=== PATIENT | female | born 1975 | race Caucasian/White ===

== ENCOUNTER 2016-11-10 20:30 | Emergency (ER) | payer MEDICAID ==
[2016-11-10] MEDS ORDERED: Ondansetron 4 MG/2 ML SDV IVPUSH ONE (21:33)
--- NOTE | 2016-11-10 21:34 | EDM.PDOC ---
ED HPI GENERAL MEDICAL PROBLEM - General Chief Complaint: General Stated Complaint: NAUSEA/RACING HEARTBEAT Time Seen by Provider: 11/10/16 21:34 Source of Information: Reports: Patient, Family History Limitations: Reports: No limitations headache Pain Score (Numeric/FACES): 2 - Related Data Allergies Allergy/AdvReac Type Severity Reaction Status Date / Time medroxyprogesterone Allergy Hives Verified 11/10/16 20:52 [From Depo-Provera] Home Meds: Home Meds Hydrochlorothiazide 12.5 mg PO DAILY 11/10/16 [History] Past Medical History Cardiovascular History: Reports: Hypertension Gastrointestinal History: Reports: Cholelithiasis, GERD 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: Polycystic 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, Musculoskeletal History: Reports: Fibromyalgia Neurological History: Reports: Migraines Psychiatric History: Reports: Anxiety Endocrine/Metabolic History: Reports: Obesity/BMI 30+ Hematologic History: Reports: None - Infectious Disease History Infectious Disease History: Reports: Chicken pox - Past Surgical History GI Surgical History: Reports: Appendectomy, Cholecystectomy, Colonoscopy, EGD Female Surgical History: Reports: Hysterectomy Social & Family History - Tobacco Use Smoking Status *Q: Never Smoker - Caffeine Use Caffeine Use: Reports: Soda - Recreational Drug Use Recreational Drug Use: No ED ROS GENERAL - Review of Systems Review Of Systems: See Below Constitutional: Reports: no symptoms, other (pt felt warm all over. ) HEENT: Reports: No symptoms Respiratory: Reports: other (Pt hurts on her left chest wall. She has had a bad cough. ) Cardiovascular: Reports: No symptoms Endocrine: Reports: no symptoms GI/Abdominal: Reports: Abdominal pain, Nausea, Other (Pt has pain in the rt upper quadrant. ) : Reports: no symptoms Musculoskeletal: Reports: no symptoms Skin: Reports: no symptoms ED EXAM, GENERAL - Physical Exam Exam: See Below Free Text/Narrative:: Pt arrived with pain in the rt upper abdoman and she was very nauseated. Her bp was found to be much higher than usual. She has the sensation that her heart is pounding fast. Exam Limited By: No limitations General Appearance: alert, anxious, moderate distress Ears: normal TMs Nose: normal inspection Throat/Mouth: Normal inspection Head: atraumatic Neck: normal inspection Respiratory/Chest: no respiratory distress Cardiovascular: regular rate, rhythm GI/Abdominal: soft, non tender Rectal (Female) Exam: Deferred Extremities: normal inspection Neurological: alert, oriented, normal cognition, other (pt has had slightly blurred vision and she felt hot all over. She was not found to have a fever. ) Psychiatric: normal affect Course - Vital Signs Last Recorded V/S: Last Vital Signs Temp 37.4 C 11/10/16 21:01 Pulse 76 11/10/16 22:11 Resp 20 11/10/16 22:11 BP 151/91 H 11/10/16 22:11 Pulse Ox 97 11/10/16 22:11 - Orders/Labs/Meds Orders: Active Orders 24 hr Category Date Time Status Abdomen Ltd [US] Stat Exams 11/10/16 22:09 Ordered Chest 2V [CR] Stat Exams 11/10/16 21:32 Taken Sodium Chloride 0.9% [Normal Saline] 1,000 ml Med 11/10/16 21:45 Active IV ASDIRECTED Medication Orders Sodium Chloride (Normal Saline) 1,000 mls @ 200 mls/hr IV ASDIRECTED CHELO Last Admin: 11/10/16 21:59 Dose: 200 mls/hr Labs: Laboratory Tests 11/10/16 11/10/16 11/10/16 Range/Units 21:32 21:32 21:32 WBC 9.1 (4.5-11.0) K/uL RBC 4.75 (3.30-5.50) M/uL Hgb 14.2 (12.0-15.0) g/dL Hct 40.4 (36.0-48.0) % MCV 85 (80-98) fL MCH 30 (27-31) pg MCHC 35 (32-36) % Plt Count 314 (150-400) K/uL Neut % (Auto) 57 (36-66) % Lymph % (Auto) 32 (24-44) % [place] % (Auto) 8 H (2-6) % Eos % (Auto) 3 (2-4) % Baso % (Auto) 1 (0-1) % Sodium 143 (140-148) mmol/L Potassium 3.5 L (3.6-5.2) mmol/L Chloride 104 (100-108) mmol/L Carbon Dioxide 30 (21-32) mmol/L Anion Gap 12.5 (5.0-14.0) mmol/L BUN 13 (7-18) mg/dL Creatinine 0.9 (0.6-1.0) mg/dL Est Cr Clr Drug Dosing 70.32 mL/min Estimated GFR (MDRD) > 60 (>60) Glucose 96 (74-106) mg/dL Calcium 9.3 (8.5-10.1) mg/dL Total Bilirubin 0.3 (0.2-1.0) mg/dL AST 15 (15-37) U/L ALT 30 (12-78) U/L Alkaline Phosphatase 55 (46-116) U/L C-Reactive Protein (0.0-0.3) mg/dL Total Protein 7.1 (6.4-8.2) g/dL Albumin 3.8 (3.4-5.0) g/dL Globulin 3.3 (2.3-3.5) g/dL Albumin/Globulin Ratio 1.2 (1.2-2.2) Lipase 211 (73-393) U/L Urine Color Urine Appearance Urine pH (4.5-8.0) Ur Specific [place] (1.008-1.030) Urine Protein (NEGATIVE) mg/dL Urine Glucose (UA) (NEGATIVE) mg/dL Urine Ketones (NEGATIVE) mg/dL Urine Occult Blood (NEGATIVE) Urine Nitrite (NEGATIVE) Urine Bilirubin (NEGATIVE) Urine Urobilinogen (NORMAL) mg/dL Ur Leukocyte Esterase (NEGATIVE) Urine RBC (0-5) Urine WBC (0-5) Ur Epithelial Cells Amorphous Sediment Urine Bacteria Urine Mucus 11/10/16 11/10/16 Range/Units 22:07 22:30 WBC (4.5-11.0) K/uL RBC (3.30-5.50) M/uL Hgb (12.0-15.0) g/dL Hct (36.0-48.0) % MCV (80-98) fL MCH (27-31) pg MCHC (32-36) % Plt Count (150-400) K/uL Neut % (Auto) (36-66) % Lymph % (Auto) (24-44) % [place] % (Auto) (2-6) % Eos % (Auto) (2-4) % Baso % (Auto) (0-1) % Sodium (140-148) mmol/L Potassium (3.6-5.2) mmol/L Chloride (100-108) mmol/L Carbon Dioxide (21-32) mmol/L Anion Gap (5.0-14.0) mmol/L BUN (7-18) mg/dL Creatinine (0.6-1.0) mg/dL Est Cr Clr Drug Dosing mL/min Estimated GFR (MDRD) (>60) Glucose (74-106) mg/dL Calcium (8.5-10.1) mg/dL Total Bilirubin (0.2-1.0) mg/dL AST (15-37) U/L ALT (12-78) U/L Alkaline Phosphatase (46-116) U/L C-Reactive Protein 0.08 (0.0-0.3) mg/dL Total Protein (6.4-8.2) g/dL Albumin (3.4-5.0) g/dL Globulin (2.3-3.5) g/dL Albumin/Globulin Ratio (1.2-2.2) Lipase (73-393) U/L Urine Color Yellow Urine Appearance Clear Urine pH 7.0 (4.5-8.0) Ur Specific [place] 1.020 (1.008-1.030) Urine Protein Negative (NEGATIVE) mg/dL Urine Glucose (UA) Normal (NEGATIVE) mg/dL Urine Ketones Negative (NEGATIVE) mg/dL Urine Occult Blood Negative (NEGATIVE) Urine Nitrite Negative (NEGATIVE) Urine Bilirubin Negative (NEGATIVE) Urine Urobilinogen Normal (NORMAL) mg/dL Ur Leukocyte Esterase Negative (NEGATIVE) Urine RBC 0-5 (0-5) Urine WBC 0-5 (0-5) Ur Epithelial Cells Moderate Amorphous Sediment Few Urine Bacteria Few Urine Mucus Few Meds: Medications Generic Name Dose Route Start Last Admin Trade Name Freq PRN Reason Stop Dose Admin Sodium Chloride 1,000 mls @ 200 mls/hr 11/10/16 21:45 11/10/16 21:59 Normal Saline IV 200 mls/hr ASDIRECTED CHELO Administration Discontinued Medications Generic Name Dose Route Start Last Admin Trade Name Freq PRN Reason Stop Dose Admin Metoprolol Tartrate 25 mg 11/10/16 22:37 Lopressor PO 11/10/16 22:38 ONETIME ONE Ondansetron HCl 4 mg 11/10/16 21:33 11/10/16 22:00 Zofran IVPUSH 11/10/16 21:34 4 mg ONETIME ONE Administration - Re-Assessments/Exams Free Text/Narrative Re-Assessment/Exam: 11/10/16 23:01 pt had a normal wbc, her crp is not markedly elfevated. Her chest xray did not reveal a infiltrate. Her bp was followed and graduallu did come down but still did remain elevated. 11/10/16 23:13 Us revealed a normal sized common duct with no stones. Pt has alot of ga in the upper rt abdoman. Departure - Departure Time of Disposition: 23:03 Disposition: Home, Self-Care 01 Condition: fair Clinical Impression: Hypertension, Flu syndrome, Constipation Referrals: Millie Worthington PA [Primary Care Provider] - Forms: ED Department Discharge Care Plan Goals: push fluids, prunes and high fiber food to stimulate a better bm, cont present bp pill add lopressor 25 mg daily, zoforan 4 mg q6h prn for nausea. appt with Elo Worthington in 1 week. - My Orders Last 24 Hours: My Active Orders 11/10/16 21:32 Chest 2V [CR] Stat 11/10/16 21:45 Sodium Chloride 0.9% [Normal Saline] 1,000 ml IV ASDIRECTED 11/10/16 22:09 Abdomen Ltd [US] Stat - Assessment/Plan Last 24 Hours: My Active Orders 11/10/16 21:32 Chest 2V [CR] Stat 11/10/16 21:45 Sodium Chloride 0.9% [Normal Saline] 1,000 ml IV ASDIRECTED 11/10/16 22:09 Abdomen Ltd [US] Stat
[2016-11-10] MEDS ORDERED: Sodium Chloride 0.9% 1,000 ML IV SCH (21:45)
[2016-11-10] MEDS ORDERED: Metoprolol Tartrate 25 MG Tab PO ONE (22:37)
[2016-11-10 23:17] VITALS: BP 143/94
--- NOTE | 2016-11-11 09:46 | CR ---
Chest 2V HISTORY: Cough, shortness of breath. COMPARISON: 03/13/2011 FINDINGS: Cardiac size and pulmonary vessels normal. Density overlying the right supraclavicular reg ion likely representing overlying closing or possibly pony tail. No focal infiltrates.
--- NOTE | 2016-11-11 09:48 | US ---
Abdomen Ltd HISTORY: Upper abdominal pain COMPARISON: CT scan 06/12/2016 FINDINGS: Gallbladder has been removed. The common bile duct, pancreas, right kidney, liver appear n ormal. Inferior vena cava patent. No ascites. Impression: Negative right upper quadrant ultrasound.
== END 2016-11-10 23:29 | disposition home or self-care (01) ==
LOC: JP.ED 20:30
DX: I10 Essential (primary) hypertension (principal); K59.00 Constipation, unspecified; J11.1 Influenza due to unidentified influenza virus with other respiratory manifestations; Z90.49 Acquired absence of other specified parts of digestive tract; Z98.890 Other specified postprocedural states
CPT/HCPCS: 36415; 71020; 76705; 80053; 81001; 83690; 85025; 86140; 96361; 96374; 99285; A9270; J2405; J7040

== ENCOUNTER 2017-06-06 17:11 | Emergency (ER) | payer MEDICAID ==
[2017-06-06] MEDS ORDERED: HYDROmorphone 1 MG/ML Syringe IVPUSH ONE (17:14)
[2017-06-06] MEDS ORDERED: Ketorolac 30 MG/ML SDV IVPUSH ONE (17:20)
[2017-06-06] MEDS ORDERED: Sodium Chloride 0.9% 10 ML Syringe FLUSH PRN (17:29)
[2017-06-06 17:30] VITALS: BP 159/99
--- NOTE | 2017-06-06 17:45 | EDM.PDOC ---
ED HPI GENERAL MEDICAL PROBLEM - General Chief Complaint: Upper Extremity Injury/Pain Stated Complaint: LEFT HAND FINGERS INJURY Time Seen by Provider: 06/06/17 17:42 Source of Information: Reports: Patient History Limitations: Reports: No Limitations - History of Present Illness INITIAL COMMENTS - FREE TEXT/NARRATIVE: Pt was moving today when stove began moving down a ramp with her hand underneath it, crushing it. In intense pain. Believes tetanus is up to date. Has applied ice to it. Difficulty bending fingers. Onset: Today Onset Date: 06/06/17 Onset Time: 16:30 Duration: Constant Location: Reports: Upper Extremity, Left Quality: Reports: Ache, Sharp Severity: Severe Improves with: Reports: Cold Therapy Worsens with: Reports: Movement Context: Reports: Trauma Associated Symptoms: Reports: No Other Symptoms - Related Data Allergies Allergy/AdvReac Type Severity Reaction Status Date / Time medroxyprogesterone Allergy Hives Verified 11/10/16 20:52 [From Depo-Provera] Home Meds: Home Meds Hydrochlorothiazide 12.5 mg PO DAILY 11/10/16 [History] Past Medical History Cardiovascular History: Reports: Hypertension Gastrointestinal History: Reports: Cholelithiasis, 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: Polycystic Ovaries, Musculoskeletal History: Reports: Fibromyalgia Neurological History: Reports: Migraines Psychiatric History: Reports: Anxiety Endocrine/Metabolic History: Reports: Obesity/BMI 30+ Hematologic History: Reports: None - Infectious Disease History Infectious Disease History: Reports: Chicken Pox - Past Surgical History GI Surgical History: Reports: Appendectomy, Cholecystectomy, Colonoscopy, EGD Female Surgical History: Reports: Hysterectomy Social & Family History - Tobacco Use Smoking Status *Q: Never Smoker - Caffeine Use Caffeine Use: Reports: Soda - Recreational Drug Use Recreational Drug Use: No Review of Systems - Review of Systems Review Of Systems: See Below Constitutional: Reports: No Symptoms Eyes: Reports: No Symptoms Ears: Reports: No Symptoms Nose: Reports: No Symptoms Mouth/Throat: Reports: No Symptoms Respiratory: Reports: No Symptoms Cardiovascular: Reports: No Symptoms Musculoskeletal: Reports: Hand Pain (left) Skin: Reports: Bruising (left hand) ED EXAM, GENERAL - Physical Exam Exam: See Below Exam Limited By: No Limitations General Appearance: Alert, WD/WN, Moderate Distress Extremities: Limited Range of Motion (to left fingers x 4, difficulty flexing) Neurological: Alert, Oriented, CN II-XII Intact, Normal Cognition, Normal Gait, Normal Reflexes, No Motor/Sensory Deficits Skin Exam: Wound/Incision (scraped appearance to top of left hand and fingers. No active bleeding. Swelling noted.) Course - Vital Signs Last Recorded V/S: Last Vital Signs Temp 98.6 F 06/06/17 17:27 Pulse 105 H 06/06/17 17:27 Resp 14 06/06/17 17:27 BP 159/99 H 06/06/17 17:27 Pulse Ox 98 06/06/17 17:27 - Orders/Labs/Meds Orders: Active Orders 24 hr Category Date Time Status Hand Comp Min 3V Lt [CR] Stat Exams 06/06/17 17:15 Taken Sodium Chloride 0.9% [Saline Flush] Med 06/06/17 17:29 Active 10 ml FLUSH ASDIRECTED PRN Medication Orders Sodium Chloride (Saline Flush) 10 ml FLUSH ASDIRECTED PRN PRN Reason: IV Use Last Admin: 06/06/17 17:30 Dose: 10 ml Meds: Medications Generic Name Dose Route Start Last Admin Trade Name Freq PRN Reason Stop Dose Admin Sodium Chloride 10 ml 06/06/17 17:29 06/06/17 17:30 Saline Flush FLUSH 10 ml ASDIRECTED PRN Administration IV Use Discontinued Medications Generic Name Dose Route Start Last Admin Trade Name Freq PRN Reason Stop Dose Admin Hydromorphone HCl 1 mg 06/06/17 17:14 06/06/17 17:30 Dilaudid IVPUSH 06/06/17 17:15 1 mg ONETIME ONE Administration Ketorolac Tromethamine 30 mg 06/06/17 17:20 06/06/17 17:49 Toradol IVPUSH 06/06/17 17:21 30 mg ONETIME ONE Administration Departure - Departure Time of Disposition: 17:53 Disposition: Home, Self-Care 01 Condition: Fair Clinical Impression: Crushing injury of left hand and finger Qualifiers: Encounter type: initial encounter Qualified Code(s): S67.22XA - Crushing injury of left hand, initial encounter - Discharge Information Instructions: Crush Injury, Fingers or Toes, [id number] Referrals: PCP,None [Primary Care Provider] - Forms: ED Department Discharge Additional Instructions: Iv Dilaudid and Toradol given while in ER for pain management. Xrays of left hand and fingers without fracture. Hand wounds cleansed and dressed with bacitracin and gauze. Pt to monitor for s/s of infection. To change dressings daily until healed. Rx for Hydrocodone 5/325 1 tab q 6-8 hours as needed for pain given. Encouraged Aleve 1-2 tabs twice daily as well for inflammation. - Problem List & Annotations (1) Crushing injury of left hand and finger SNOMED Code(s): 39607936 Code(s): S67.22XA - CRUSHING INJURY OF LEFT HAND, INITIAL ENCOUNTER Status : Acute Priority: Medium Current Visit: Yes Qualifiers: Encounter type: initial encounter Qualified Code(s): S67.22XA - Crushing injury of left hand, initial encounter - My Orders Last 24 Hours: My Active Orders 06/06/17 17:15 Hand Comp Min 3V Lt [CR] Stat 06/06/17 17:29 Sodium Chloride 0.9% [Saline Flush] 10 ml FLUSH ASDIRECTED PRN - Assessment/Plan Last 24 Hours: My Active Orders 06/06/17 17:15 Hand Comp Min 3V Lt [CR] Stat 06/06/17 17:29 Sodium Chloride 0.9% [Saline Flush] 10 ml FLUSH ASDIRECTED PRN
[2017-06-06] MEDS ORDERED: Bacitracin Oint 1 GM U/D Packet TOP ONE (17:56)
--- NOTE | 2017-06-07 15:18 | CR ---
Hand Comp Min 3V Lt INDICATION: crush injury to hand COMPARISON: None FINDINGS: 3 views. No fracture, dislocation, or other acute bony abnormality. Positive ulnar vari ance with signs of mild chronic distal ulnar impaction. IMPRESSION: Nothing acute. Chronic distal ulnar impaction.
== END 2017-06-06 18:13 | disposition home or self-care (01) ==
LOC: JP.ED 17:11
DX: S67.22XA Crushing injury of left hand, initial encounter (principal); I10 Essential (primary) hypertension; K21.9 Gastro-esophageal reflux disease without esophagitis; F41.9 Anxiety disorder, unspecified; E66.9 Obesity, unspecified; Z90.49 Acquired absence of other specified parts of digestive tract; Z90.710 Acquired absence of both cervix and uterus; Z79.899 Other long term (current) drug therapy; Z88.8 Allergy status to other drugs, medicaments and biological substances; W23.0XXA Caught, crushed, jammed, or pinched between moving objects, initial encounter
CPT/HCPCS: 73130; 96374; 96375; 99284; J1170; J1885; J7050

== ENCOUNTER 2017-09-30 20:12 | Emergency (ER) | payer MEDICAID ==
[2017-09-30 20:33] VITALS: BP 133/78
[2017-09-30] MEDS ORDERED: Ondansetron 4 MG/2 ML SDV IVPUSH ONE (21:50)
[2017-09-30] MEDS ORDERED: Ketorolac 30 MG/ML SDV IVPUSH ONE (21:50)
[2017-09-30] MEDS ORDERED: diphenhydrAMINE 50 MG/ML SDV IVPUSH ONE (21:50)
[2017-09-30] MEDS ORDERED: Sodium Chloride 0.9% 1,000 ML IV SCH (22:00)
--- NOTE | 2017-09-30 22:10 | EDM.PDOC ---
ED HPI GENERAL MEDICAL PROBLEM - General Chief Complaint: Gastrointestinal Problem Stated Complaint: NAUSEA HEADACHE ABD PAIN Time Seen by Provider: 09/30/17 20:58 Source of Information: Reports: Patient History Limitations: Reports: No Limitations - History of Present Illness INITIAL COMMENTS - FREE TEXT/NARRATIVE: Influenza like illness; this is a 42 year old female presents to ER for sudden onset of nausea, vomiting and diarrhea after eating a tuna fish sandwich at 3 pm today. this triggered her usual migraine headache. she is here for evaluation. Onset: Today, Sudden Duration: Hour(s): Location: Reports: Abdomen, Other (headache) Quality: Reports: Ache Severity: Moderate Improves with: Reports: None Worsens with: Reports: None Associated Symptoms: Reports: Headaches, Nausea/Vomiting Posterior Headache Pain Score (Numeric/FACES): 7 Middle Abdomen Pain Score (Numeric/FACES): 5 - Related Data Allergies Allergy/AdvReac Type Severity Reaction Status Date / Time medroxyprogesterone Allergy Hives Verified 09/30/17 20:47 [From Depo-Provera] Home Meds: Home Meds Hydrochlorothiazide 12.5 mg PO DAILY 11/10/16 [History] Past Medical History Cardiovascular History: Reports: Hypertension Gastrointestinal History: Reports: Cholelithiasis, GERD Genitourinary History: Reports: None [facility] History: Reports: Polycystic Ovaries, Musculoskeletal History: Reports: Fibromyalgia Neurological History: Reports: Migraines Psychiatric History: Reports: Anxiety Endocrine/Metabolic History: Reports: Obesity/BMI 30+ Hematologic History: Reports: None - Infectious Disease History Infectious Disease History: Reports: Chicken Pox - Past Surgical History GI Surgical History: Reports: Appendectomy, Cholecystectomy, Colonoscopy, EGD Female Surgical History: Reports: Hysterectomy Social & Family History - Tobacco Use Smoking Status *Q: Never Smoker Second Hand Smoke Exposure: No - Caffeine Use Caffeine Use: Reports: Coffee - Recreational Drug Use Recreational Drug Use: No ED ROS GENERAL - Review of Systems Review Of Systems: See Below Constitutional: Reports: Fever, Chills, Malaise, Fatigue HEENT: Reports: No Symptoms, Eye Pain (light sensivity) Respiratory: Reports: No Symptoms Cardiovascular: Reports: No Symptoms Endocrine: Reports: No Symptoms GI/Abdominal: Reports: Abdominal Pain, Diarrhea, Nausea, Vomiting : Reports: No Symptoms Musculoskeletal: Reports: No Symptoms Skin: Reports: No Symptoms Neurological: Reports: No Symptoms Psychiatric: Reports: No Symptoms Hematologic/Lymphatic: Reports: No Symptoms Immunologic: Reports: No Symptoms ED EXAM, GENERAL - Physical Exam Exam: See Below Exam Limited By: No Limitations General Appearance: Alert, Moderate Distress (laying curled up on stretcher in darken room. emesis bag at her side.) Eye Exam: Bilateral Eye: EOMI, Normal Inspection, PERRL Ears: Normal External Exam, Normal Canal, Hearing Grossly Normal, Normal TMs Ear Exam: Bilateral Ear: Auricle Normal, Canal Normal, TM normal Nose: Normal Inspection, Normal Mucosa, No Blood Throat/Mouth: Normal Inspection, Normal Lips, Normal Teeth, Normal Gums, Normal Oropharynx, Normal Voice, No Airway Compromise Head: Atraumatic, Normocephalic Neck: Normal Inspection, Supple, Non-Tender, Full Range of Motion Respiratory/Chest: No Respiratory Distress, Lungs Clear, Normal Breath Sounds, No Accessory Muscle Use, Chest Non-Tender Cardiovascular: Normal Peripheral Pulses, Regular Rate, Rhythm, No Edema, No Gallop, No JVD, No Murmur, No Rub GI/Abdominal: Normal Bowel Sounds, Soft, Tender (generalized tenderness) (Female) Exam: Deferred Rectal (Female) Exam: Deferred Extremities: Normal Inspection, Normal Range of Motion, Non-Tender, Normal Capillary Refill, No Pedal Edema Neurological: Alert, Oriented, CN II-XII Intact, Normal Cognition, Normal Gait, Normal Reflexes, No Motor/Sensory Deficits Psychiatric: Normal Affect, Normal Mood Skin Exam: Warm, Dry, Intact, Normal Color, No Rash Lymphatic: No Adenopathy Course - Vital Signs Last Recorded V/S: Last Vital Signs Temp 36.5 C 09/30/17 20:42 Pulse 101 H 09/30/17 20:42 Resp 16 09/30/17 20:42 BP 133/78 09/30/17 20:42 Pulse Ox 95 09/30/17 20:42 - Orders/Labs/Meds Orders: Active Orders 24 hr Category Date Time Status CULTURE STREP A CONFIRMATION [] Stat Lab 09/30/17 21:08 Results STREP SCRN A RAPID W CULT CONF [] Stat Lab 09/30/17 21:08 Results Labs: Laboratory Tests 09/30/17 09/30/17 Range/Units 21:08 21:08 Urine Color Yellow Urine Appearance Cloudy Urine pH 5.0 (4.5-8.0) Ur Specific [place] 1.030 (1.008-1.030) Urine Protein Negative (NEGATIVE) mg/dL Urine Glucose (UA) Normal (NEGATIVE) mg/dL Urine Ketones Negative (NEGATIVE) mg/dL Urine Occult Blood Moderate (NEGATIVE) Urine Nitrite Negative (NEGATIVE) Urine Bilirubin Small (NEGATIVE) Urine Urobilinogen Normal (NORMAL) mg/dL Ur Leukocyte Esterase Negative (NEGATIVE) Urine RBC 0-5 (0-5) Urine WBC 0-5 (0-5) Ur Epithelial Cells Few Amorphous Sediment Few Urine Bacteria Rare Urine Mucus Few Urine HCG, Qual Negative Meds: Medications Discontinued Medications Generic Name Dose Route Start Last Admin Trade Name Freq PRN Reason Stop Dose Admin Diphenhydramine HCl 25 mg 09/30/17 21:50 09/30/17 22:08 Benadryl IVPUSH 09/30/17 21:51 25 mg ONETIME ONE Administration Sodium Chloride 1,000 mls @ 999 mls/hr 09/30/17 22:00 09/30/17 22:03 Normal Saline IV 999 mls/hr ASDIRECTED CHELO Administration Ketorolac Tromethamine 30 mg 09/30/17 21:50 09/30/17 22:12 Toradol IVPUSH 09/30/17 21:51 30 mg ONETIME ONE Administration Ondansetron HCl 4 mg 09/30/17 21:50 09/30/17 22:05 Zofran IVPUSH 09/30/17 21:51 4 mg ONETIME ONE Administration - Re-Assessments/Exams Free Text/Narrative Re-Assessment/Exam: 09/30/17 22:08 labs; rapid strep, influenza A and B, urine micro, hcg; are negative will treat migraine headache, with 1 liter NS, IV Toradol 30mg, IV benadryl 25mg , IV Zofran 4mg. then plan to discharge to home with anti emetics. and sick slip for no work x 3 days. Departure - Departure Time of Disposition: 23:15 Disposition: Home, Self-Care 01 Condition: Good Clinical Impression: Gastroenteritis Migraine headache Qualifiers: Migraine type: without aura Intractability: not intractable - Discharge Information Instructions: Migraine Headache, [id number], Viral Gastroenteritis, Adult, [id number] Referrals: Millie Worthington PA [Primary Care Provider] - Forms: ED Department Discharge Care Plan Goals: Migraine headache, gastroenteritis -advise to rest, push fluids, no work for 3 days -take Phenergan 25mg po every 6 to 8 hours as needed for nausea -diet; clear liquids x 24 hours then advance as tolerated return to clinic, urgent care or er, if not improved or symptoms worsen. - Problem List & Annotations (1) Gastroenteritis SNOMED Code(s): 62703453 Code(s): K52.9 - NONINFECTIVE GASTROENTERITIS AND COLITIS, UNSPECIFIED Status: Acute Priority: High (2) Migraine headache SNOMED Code(s): 30155082 Code(s): G43.909 - MIGRAINE, UNSP, NOT INTRACTABLE, WITHOUT STATUS MIGRAINOSUS Status: Acute Priority: High Qualifiers: Migraine type: without aura Intractability: not intractable - Problem List Review Problem List Initiated/Reviewed/Updated: Yes - My Orders Last 24 Hours: My Active Orders 09/30/17 21:08 CULTURE STREP A CONFIRMATION [RM] Stat STREP SCRN A RAPID W CULT CONF [RM] Stat - Assessment/Plan Last 24 Hours: My Active Orders 09/30/17 21:08 CULTURE STREP A CONFIRMATION [RM] Stat STREP SCRN A RAPID W CULT CONF [RM] Stat Plan: Migraine headache, gastroenteritis -advise to rest, push fluids, no work for 3 days -take Phenergan 25mg po every 6 to 8 hours as needed for nausea -diet; clear liquids x 24 hours then advance as tolerated return to clinic, urgent care or er, if not improved or symptoms worsen.
== END 2017-09-30 23:15 | disposition home or self-care (01) ==
LOC: JP.ED 20:12
DX: K52.9 Noninfective gastroenteritis and colitis, unspecified (principal); G43.909 Migraine, unspecified, not intractable, without status migrainosus; I10 Essential (primary) hypertension; K21.9 Gastro-esophageal reflux disease without esophagitis; Z79.899 Other long term (current) drug therapy; Z88.8 Allergy status to other drugs, medicaments and biological substances
CPT/HCPCS: 81001; 81025; 87081; 87430; 87804; 96361; 96374; 96375; 99284; J1200; J1885; J2405; J7040; J7030

== ENCOUNTER 2018-10-01 04:46 | Emergency (ER) | payer SELFPAY ==
[2018-10-01 05:10] VITALS: BP 143/93
[2018-10-01] MEDS ORDERED: Lidocaine 2% Viscous Solution 15 ML Cup PO ONE (05:23)
--- NOTE | 2018-10-01 05:30 | EDM.PDOC ---
ED HPI GENERAL MEDICAL PROBLEM - General Chief Complaint: ENT Problem Time Seen by Provider: 10/01/18 05:05 Source of Information: Reports: Patient, Family History Limitations: Reports: No Limitations - History of Present Illness INITIAL COMMENTS - FREE TEXT/NARRATIVE: 43-year-old female over the last 12 hours has developed a very sore throat, painful swallowing especially in the right side. No fevers or chills, but she has been exposed to strep throat through the family. She's also developed swelling under the right mandible. Slight cough, no runny nose or ear pain. No nausea or vomiting. 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: Polycystic Ovaries, Musculoskeletal History: Reports: Fibromyalgia Neurological History: Reports: Migraines Psychiatric History: Reports: Anxiety Endocrine/Metabolic History: Reports: Obesity/BMI 30+ Hematologic History: Reports: None - Infectious Disease History Infectious Disease History: Reports: Chicken Pox - Past Surgical History GI Surgical History: Reports: Appendectomy, Cholecystectomy, Colonoscopy, EGD Female Surgical History: Reports: Hysterectomy Social & Family History - Tobacco Use Smoking Status *Q: Never Smoker Second Hand Smoke Exposure: No - Caffeine Use Caffeine Use: Reports: Coffee, Soda, Tea - Alcohol Use Days Per Week of Alcohol Use: 0 - Recreational Drug Use Recreational Drug Use: No ED ROS ENT - Review of Systems Review Of Systems: See Below Constitutional: Denies: Fever, Chills HEENT: Reports: Throat Pain. Denies: Ear Pain, Rhinitis Respiratory: Reports: Cough. Denies: Shortness of Breath Cardiovascular: Denies: Chest Pain GI/Abdominal: Denies: Abdominal Pain, Nausea, Vomiting Skin: Denies: Erythema Neurological: Denies: Headache ED EXAM, ENT - Physical Exam Exam: See Below Exam Limited By: No Limitations General Appearance: Alert, No Apparent Distress Mouth/Throat: Other (The right tonsil was erythematous compared to the left, but there is no significant swelling or exudate, in fact her tonsils are very small.) Head: Atraumatic Neck: Lymphadenopathy (R) (Right submandibular cervical adenopathy is present, more tender than it is swollen) Respiratory/Chest: No Respiratory Distress, Lungs Clear Course - Vital Signs Last Recorded V/S: Last Vital Signs Temp 97.1 F 10/01/18 05:08 Pulse 76 10/01/18 05:08 Resp 16 10/01/18 05:08 BP 143/93 H 10/01/18 05:08 Pulse Ox 99 10/01/18 05:08 - Orders/Labs/Meds Meds: Medications Discontinued Medications Generic Name Dose Route Start Last Admin Trade Name Freq PRN Reason Stop Dose Admin Lidocaine HCl 15 ml 10/01/18 05:23 10/01/18 05:30 Xylocaine 2% Viscous PO 10/01/18 05:24 15 ml ONETIME ONE Administration - Re-Assessments/Exams Free Text/Narrative Re-Assessment/Exam: 10/01/18 05:40 Patient is self-pay and would like to limit the workup on this first visit. With her exposure to strep it's reasonable to cover her with amoxicillin, she was also given some viscous lidocaine for pain control. Encouraged to stay hydrated, use anti-inflammatories and was placed on amoxicillin 500 mg 3 times a day for at least 7 days. She'll return in 2-3 days if not improving satisfactorily, or sooner if worsening despite treatment. Departure - Departure Time of Disposition: 05:41 Disposition: Home, Self-Care 01 Condition: Good Clinical Impression: Lymphadenopathy of right cervical region Pharyngitis Qualifiers: Pharyngitis/tonsillitis etiology: unspecified etiology Qualified Code(s): J02.9 - Acute pharyngitis, unspecified - Discharge Information Instructions: Sore Throat, [id number] Referrals: Millie Worthington PA [Primary Care Provider] - Forms: ED Department Discharge Care Plan Goals: Take antibiotic 3 times a day for at least 7 days, a regular dose of ibuprofen or naproxen will help with discomfort. Stay hydrated and use numbing medicine as directed as needed and consider rechecking in 2-3 days if not improving satisfactorily. Return sooner if worsening such as increased swelling or fever or inability to swallow
== END 2018-10-01 05:41 | disposition home or self-care (01) ==
LOC: JP.ED 04:46
DX: J02.9 Acute pharyngitis, unspecified (principal); R59.0 Localized enlarged lymph nodes; I10 Essential (primary) hypertension; Z88.5 Allergy status to narcotic agent; Z79.899 Other long term (current) drug therapy
CPT/HCPCS: 99282; A9270

== ENCOUNTER 2021-06-18 10:41 | Emergency (ER) | payer OTHER ==
[2021-06-18 11:20] VITALS: BP 160/118; PULSE 89
[2021-06-18] MEDS ORDERED: Ondansetron 4 MG Tab.DIS PO ONE (12:06)
--- NOTE | 2021-06-18 13:19 | EDM.PDOC ---
ED HPI GENERAL MEDICAL PROBLEM - General Chief Complaint: Respiratory Problem Stated Complaint: COVID POSITIVE, STOMACH PAIN, SHAKEY Time Seen by Provider: 06/18/21 11:30 Source of Information: Reports: Patient History Limitations: Reports: No Limitations - History of Present Illness INITIAL COMMENTS - FREE TEXT/NARRATIVE: 46-year-old female with recent diagnosis of COVID-19 presents with concerns of nausea and vomiting. She is on day 6 or 7 of illness. She initially had some cough but this is resolved. No fevers. Continues to have emesis. Nonbloody. Associated with some diarrhea which she describes as nonbloody and somewhat mucus-like. She has had difficulty tolerating p.o. due to the symptoms. Tried an old prescription for Zofran with minimal relief. Has developed some epigastric discomfort as well. 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: Polycystic Ovaries, Musculoskeletal History: Reports: Fibromyalgia Neurological History: Reports: Migraines Psychiatric History: Reports: Anxiety Endocrine/Metabolic History: Reports: Obesity/BMI 30+ Hematologic History: Reports: None - Infectious Disease History Infectious Disease History: Reports: Chicken Pox - Past Surgical History Head Surgeries/Procedures: Reports: None HEENT Surgical History: Reports: None Cardiovascular Surgical History: Reports: None GI Surgical History: Reports: Appendectomy, Cholecystectomy, Colonoscopy, EGD Female Surgical History: Reports: Hysterectomy Neurological Surgical History: Reports: None Musculoskeletal Surgical History: Reports: None Dermatological Surgical History: Reports: None Social & Family History - Tobacco Use Tobacco Use Status *Q: Never Tobacco User Second Hand Smoke Exposure: No - Caffeine Use Caffeine Use: Reports: None - Recreational Drug Use Recreational Drug Use: No ED ROS GENERAL - Review of Systems Review Of Systems: See Below Constitutional: Reports: Fatigue HEENT: Reports: No Symptoms Respiratory: Reports: Cough Cardiovascular: Reports: No Symptoms. Denies: Chest Pain Endocrine: Reports: No Symptoms GI/Abdominal: Reports: Abdominal Pain, Diarrhea, Vomiting : Reports: No Symptoms Musculoskeletal: Reports: No Symptoms Skin: Reports: No Symptoms Neurological: Reports: No Symptoms Psychiatric: Reports: No Symptoms Hematologic/Lymphatic: Reports: No Symptoms Immunologic: Reports: No Symptoms ED EXAM, GENERAL - Physical Exam Exam: See Below Exam Limited By: No Limitations General Appearance: Alert, No Apparent Distress Ears: Normal External Exam Nose: Normal Inspection Throat/Mouth: Normal Inspection Head: Atraumatic, Normocephalic Neck: Normal Inspection Respiratory/Chest: No Respiratory Distress, Lungs Clear Cardiovascular: Regular Rate, Rhythm, No Murmur GI/Abdominal: Soft, Tender (mild epigastric) (Female) Exam: Normal External Exam Rectal (Female) Exam: Normal Exam Back Exam: Normal Inspection Extremities: Normal Inspection Neurological: Alert, Oriented Psychiatric: Normal Affect, Normal Mood Skin Exam: Warm, Dry Course - Vital Signs Last Recorded V/S: Last Vital Signs Temp 36.8 C 06/18/21 11:20 Pulse 89 06/18/21 11:20 Resp 15 06/18/21 11:20 BP 160/118 H 06/18/21 11:20 Pulse Ox 99 06/18/21 11:20 - Orders/Labs/Meds Meds: Medications Discontinued Medications Generic Name Dose Route Start Last Admin Trade Name Yasmany PRN Reason Stop Dose Admin Droperidol 1.25 mg 06/18/21 12:05 06/18/21 13:03 Droperidol 5 Mg/2 Ml Sdv IM 06/18/21 12:06 1.25 mg ONETIME ONE Administration Ondansetron HCl 4 mg 06/18/21 12:06 06/18/21 13:02 Ondansetron 4 Mg Tab.Dis PO 06/18/21 12:07 4 mg ONETIME ONE Administration - Re-Assessments/Exams Free Text/Narrative Re-Assessment/Exam: This is a 46-year-old female who presents with concerns of nausea, vomiting, and diarrhea in setting of COVID-19 infection. Exam is reassuring with normal vitals, some mild epigastric tenderness noted. Status post cholecystectomy and appendectomy. Suspicion for occult intra-abdominal pathology is low given her known COVID-19 positive status and general symptoms consistent with this. He was treated with an IM dose of droperidol as well as Zofran to good effect. Have written her prescription for p.o. Zofran at home. Appropriate for discharge. 06/18/21 14:44 Departure - Departure Time of Disposition: 14:45 Disposition: Home, Self-Care 01 Clinical Impression: COVID-19 - Discharge Information *PRESCRIPTION DRUG MONITORING PROGRAM REVIEWED*: No *COPY OF PRESCRIPTION DRUG MONITORING REPORT IN PATIENT LEIDY: No Instructions: COVID-19 Frequently Asked Questions Referrals: Juanita Palomino MD [Primary Care Provider] - Forms: ED Department Discharge Additional Instructions: Your symptoms are consistent with Covid infection. Please use the Zofran as needed and continue to push fluids. You can take Imodium for diarrhea. Stay q uarantined until your symptoms resolve. Please return the emergency department if you feel you are developing difficulty with breathing. Thank you for trusting us to care for you today. Sepsis Event Note (ED) - Focused Exam Vital Signs: Vital Signs Temp Pulse Resp BP Pulse Ox 06/18/21 11:20 36.8 C 89 15 160/118 H 99 06/18/21 11:19 36.8 C 89 15 160/118 H 99
== END 2021-06-18 14:57 | disposition home or self-care (01) ==
LOC: JP.ED 10:41
DX: U07.1 COVID-19 (principal); I10 Essential (primary) hypertension; Z88.8 Allergy status to other drugs, medicaments and biological substances; E66.9 Obesity, unspecified; Z68.30 Body mass index [BMI] 30.0-30.9, adult; Z79.899 Other long term (current) drug therapy
CPT/HCPCS: 96372; 99283; A9270; J1790

== ENCOUNTER 2023-05-17 13:12 | Emergency (ER) | payer SELFPAY ==
[2023-05-17 14:40] VITALS: BP 173/101; PULSE 71
== END 2023-05-17 14:47 | disposition home or self-care (01) ==
LOC: JP.ED 13:12
DX: K08.89 Other specified disorders of teeth and supporting structures (principal); I10 Essential (primary) hypertension; E66.9 Obesity, unspecified; Z88.8 Allergy status to other drugs, medicaments and biological substances; Z68.32 Body mass index [BMI] 32.0-32.9, adult
CPT/HCPCS: 99282